=== PATIENT | female | born 1955 | race Hispanic/Latino ===

== ENCOUNTER → 2024-11-14 | Outpatient (CLI) | payer OTHER ==
--- NOTE | 2024-11-14 10:37 | HMCIMG ---
Esophagogram History: Diaphragmatic hernia without obstruction or gangrene Comparison: none Contrast: barium sulfate suspension, effervescent granules TECHNIQUE: EXAMINATION IS DONE UNDER FLUOROSCOPIC CONTROL, WITH FLUOROSCOPIC SPOTS OBTAINED. ALSO, OVERHEAD AP AND LATERAL VIEWS WERE OBTAINED. FINDINGS: Under fluoroscopic evaluation, the patient's esophagus demonstrates normal course, contour and caliber. Normal motility is seen. Mucosa is unremarkable. There is no evidence focal destructive lesion or stenosis or stricture. No neoplastic lesions identified or suspected. The pharyngeal structures including vallecula and piriform sinuses are unremarkable. Swallowing mechanism is normal without evidence of penetration or aspiration. IMPRESSION: Normal exam.
== END | disposition home or self-care (01) ==
LOC: RAH 09:45
PROVIDERS: ATTEND Surgery
DX: K44.9 Diaphragmatic hernia without obstruction or gangrene (principal)
CPT/HCPCS: 74220

== ENCOUNTER → 2024-12-16 | Outpatient (CLI) | payer MEDICARE ==
[~2024-12-16] VITALS: Ht 154.9 cm; Wt 65.0 kg
[~2024-12-16] MED LIST: AMLO-257 PO; CYCL-309 PO; DULO60CA64 PO; GABA300C PO; HYDR-3421 PO; LISI40TA9 PO; OMEP40CA21 PO
[2024-12-16 15:18] LABS: BASOPHILS # (AUTO) 0.06 K/uL (0.00-0.20); BASOPHILS % (AUTO) 0.6 % (0.0-5.0); EOSINOPHILS # (AUTO) 0.25 K/uL (0.00-0.70); EOSINOPHILS % (AUTO) 2.7 % (0.0-8.0); HEMATOCRIT 40.2 % (36-48); IMMATURE GRANULOCYTE ABSOLUTE 0.03 K/uL (0-1); LYMPHOCYTES # (AUTO) 2.8 K/uL (1.0-4.8); LYMPHOCYTES % (AUTO) 30.4 % (21.0-51.0); MEAN CORPUSCULAR HEMOGLOBIN 30.3 pg (27.0-33.0); MEAN CORPUSCULAR HGB CONC 33.1 g/dL (32.0-36.0); MEAN CORPUSCULAR VOLUME 91.6 fL (79-99); MONOCYTES # (AUTO) 0.6 K/uL (0.1-1.0); MONOCYTES % (AUTO) 6.1 % (3.0-13.0); NEUTROPHILS # (AUTO) 5.6 K/uL (1.8-7.7); NEUTROPHILS % (AUTO) 59.9 % (40.0-77.0); PLATELET COUNT (AUTO) 332 K/uL (130-400); RED BLOOD CELL COUNT(AUTO) 4.39 MIL/uL (4.00-5.50); WHITE BLOOD COUNT (AUTO) 9.3 K/uL (4.8-10.8)
[2024-12-16 15:25] VITALS: BP 97/66; PULSE 109; RESP 16; TEMP 97.7
[2024-12-16 15:31] LABS: CREATININE 0.8 mg/dL (0.5-1.0); POTASSIUM 3.4 mmol/L (3.5-5.1)
[2024-12-16 15:35] LABS: INR 1.02 (0.85-1.15); PROTHROMBIN TIME 10.8 SEC (9.6-11.6)
[2024-12-16 15:36] LABS: PARTIAL THROMBOPLASTIN TIME 31.3 SEC (26.3-35.5)
== END | disposition home or self-care (01) ==
LOC: DAH 13:28 → EDSTATUS 12-18 14:00
PROVIDERS: ATTEND Surgery
DX: Z01.818 Encounter for other preprocedural examination (principal); K21.00 Gastro-esophageal reflux disease with esophagitis, without bleeding; K44.9 Diaphragmatic hernia without obstruction or gangrene; I10 Essential (primary) hypertension; B96.81 Helicobacter pylori [H. pylori] as the cause of diseases classified elsewhere; Z79.899 Other long term (current) drug therapy; Z98.890 Other specified postprocedural states
CPT/HCPCS: 80048; 85025; 85610; 85730; 86850; 86900; 86901; 36415; A6260

== ENCOUNTER → 2025-02-10 | Outpatient (CLI) | payer MEDICARE, MEDICAID ==
[~2025-02-10] MED LIST changes: +LISI40TA15 PO; -LISI40TA9 PO
--- NOTE | 2025-02-10 10:21 | HMCIMG ---
UPPER GI SERIES History: Diaphragmatic hernia without obstruction or gangrene/Gastro-esophageal refl Comparison: none Contrast: barium sulfate suspension, effervescent granules TECHNIQUE: EXAMINATION IS DONE UNDER FLUOROSCOPIC CONTROL, WITH FLUOROSCOPIC SPOTS OBTAINED. ALSO, OVERHEAD AP, LATERAL AND OBLIQUE VIEWS WERE OBTAINED. Exposure factors: Total fluoro time: 0.6 minutes minutes FINDINGS: Under fluoroscopic evaluation, the patient's esophagus demonstrates normal course, contour and caliber. Normal motility is seen. There is a small hiatal hernia. No reflux is seen. The stomach, duodenal bulb, duodenal C-loop, and visualized proximal small bowel show no extrinsic compression, fixed filling defect, ulcerations or abnormalities in mucosal pattern. No tumor is identified. There is no gastric outlet obstruction. There is no extravasation. There is no evidence of malrotation. IMPRESSION: Small hiatal hernia. No reflux seen.
== END | disposition home or self-care (01) ==
LOC: RAH 08:35
PROVIDERS: ATTEND Surgery
DX: K44.9 Diaphragmatic hernia without obstruction or gangrene (principal); K21.00 Gastro-esophageal reflux disease with esophagitis, without bleeding
CPT/HCPCS: 74240

== ENCOUNTER 2025-03-26 09:11 | Emergency (ER) | payer MEDICARE, MEDICAID ==
[~2025-03-26] VITALS: Ht 154.9 cm; Wt 67.1 kg
[2025-03-26] MEDS: LACTATED RINGERS 1000ML 1,000 ML IV SCH (09:54)
[2025-03-26 10:03] LABS: APPEARANCE,URINE CLEAR (CLEAR); GLUCOSE, URINE (UA) NEGATIVE (NEGATIVE); LEUKOCYTE ESTERASE ,URINE NEGATIVE Leu/uL (NEGATIVE); NITRATE,URINE NEGATIVE (NEGATIVE); OCCULT BLOOD,URINE NEGATIVE (NEGATIVE)
[2025-03-26 10:07] LABS: ADD UA MICROSCOPIC NO
[2025-03-26 10:08] LABS: IMMATURE GRANULOCYTE ABSOLUTE 0.02 K/uL (0-1); NUCLEATED RED BLOOD CELLS 0.0 % (0.0-0.19); PLATELET COUNT (AUTO) 294 K/uL (130-400); RED BLOOD CELL COUNT(AUTO) 4.24 MIL/uL (4.00-5.50); RED CELL DISTRIBUTION WIDTH 14.5 % (11.0-15.5); WHITE BLOOD COUNT (AUTO) 7.0 K/uL (4.8-10.8)
--- NOTE | 2025-03-26 10:10 | ERN ---
General Chief Complaint: Back Pain-No Injury Stated Complaint: CHRONIC BACK PAIN, SCIATICA Time Seen by MD: 09:30 Source: patient History of Present Illness Initial Comments Mrs. Griffin is a 70-year-old female, presented to the emergency department with complaints of bilateral lower back pain. Patient says the pain started last night and got progressively severe. Patient describes the pain as sharp in the bilateral lower back and sharp pain radiating down both the legs up to toes more severe on the left. Patient does not report lifting anything heavy in the last few days. Patient says the pain worsens when she bends or stay still for a long time, relieved by walking. Patient reports taking Tylenol, ibuprofen, gabapentin however did not provide relief. Patient has a past medical history of slipped disc in her lumbar vertebrae. Patient says she had UTI which was treated with antibiotics 2 weeks ago. Today she does not report any symptoms of urinary dysuria frequency or urgency. Patient has past medical history of anxiety, hypertension, stomach hernias and GERD. Allergies: Coded Allergies: Sulfa (Sulfonamide Antibiotics) (Unverified Allergy, Unknown, 12/16/24) iodine (Unverified Allergy, Unknown, 12/16/24) Home Meds Reported Medications Gabapentin (Neurontin) 300 Mg Capsule, 300 MG PO TID, CAP 12/16/24 Amlodipine Besylate (Amlodipine Besylate) 5 Mg Tablet, 5 MG PO DAILY, TAB 12/16/24 Hydroxyzine HCl (Hydroxyzine HCl) 25 Mg Tablet, 25 MG PO TID PRN for ANXIETY, TAB 12/16/24 Lisinopril (Lisinopril) 40 Mg Tablet, 40 MG PO DAILY, TAB 12/16/24 Cyclobenzaprine HCl (Cyclobenzaprine HCl) 10 Mg Tablet, 10 MG PO HS, TAB 12/16/24 Omeprazole (Omeprazole) 40 Mg Capsule.dr, 40 MG PO DAILY, CAP 12/16/24 Duloxetine HCl (Duloxetine HCl) 60 Mg Capsule.dr, 60 MG PO DAILY, CAP 12/16/24 Past Medical History Past Medical History: Hypertension Medical History Other: CHRONIC BACK PAIN Past Surgical History: Hysterectomy ROS Dictation CONSTITUTIONAL: No chills, no fever, no weakness, no diaphoresis, no malaise. HEAD/FACE: No signs of trauma. EENT: No eye pain, no blurred vision, no tearing, no double vision, no ear pain, no ear discharge, no nose pain, no nasal congestion, no throat pain, no throat swelling, no mouth pain. RESPIRATORY: No cough, no SOB, no orthopnea, no PND, no wheezing. CARDIOVASCULAR: No chest pain, no edema, no palpitations, no syncope. GASTROINTESTINAL/ABDOMINAL: No abdominal pain, no constipation, no diarrhea, no nausea, no vomiting. GENITOURINARY: No abnormal discharge, no dysuria, no frequent urination, no hematuria. No complaints of pain in the genitals. MUSCULOSKELETAL: B/L back pain, no gout, b/l knee joint pain, no joint swelling, lower back muscle pain, Lower back muscle stiffness, neck pain. INTEGUMENTARY: No change in color, no change in hair/nails, no dryness, no lesion, no lumps, no rash. NEUROLOGICAL/PSYCH: No anxiety, not depressed, no emotional problem, no headache, no numbness, no pre-existing deficit, no history of seizures, no tremors, no weakness. HEMATOLOGIC/LYMPHATIC: Not anemic, no history of blood clots, no apparent bleeding, no bruising, glands not swollen. All Systems Negative, Except as Noted. Physical Exam Physical Exam Dictation VITAL SIGNS: Reviewed. GENERAL APPEARANCE: Alert, oriented x3 HEAD AND FACE: Non-traumatic. EYES: PERRL, pink conjunctivas, eyelid no trauma, anterior chamber clear. EARS: Pinnas intact and no signs of trauma or erythema. Ear canals clear and no discharge. TMs no erythema. NOSE: No discharge, no bleeding. OROPHARYNX: Mouth normal, teeth no caries, tongue pink. Pharynx clear, no erythema. Tonsils no exudates, no abscesses noted. Mucous membrane moist. NECK: Supple, non-tender, no thyromegaly, no masses, no JVD, no bruits. BREAST: Deferred. CHEST: No tenderness, no crepitus, no paradoxical movement, no retractions. LUNGS: Clear, well-ventilated, symmetric, no rales, no wheezing, no rhonchi, no stridor, good breath sounds bilaterally. HEART: Regular rate, regular rhythm, no murmur, no gallops. VASCULAR: No peripheral edema. ABDOMEN: Soft, positive bowel sounds, nondistended, no guarding, nontender, no rebound, no masses no hepatomegaly, no splenomegaly, no Gu's sign, no hernias. RECTAL: Deferred. GENITAL: Deferred. NEUROLOGICAL: Normal speech, gross motor function intact, gross sensory function intact. MUSCULOSKELETAL: Neck nontender, full range of motion, back stiffness, straight leg test positive, limited range of motion due to pain. EXTREMITIES: Nontender, full range of motion. SKIN: Color pink, dry, no turgor, no rash, no lacerations, no abrasions, no contusions. LYMPHATICS: Deferred. Results Laboratory and Microbiology Lab and Micro Result Laboratory Tests Test 03/26/25 09:49 03/26/25 10:04 Urine Color LIGHT-YELLOW (YELLOW) Urine Appearance CLEAR (CLEAR) Urine pH 6.0 (5.0-8.0) Urine Specific [place] 1.008 (1.001-1.031) Urine Protein NEGATIVE mg/dL (NEGATIVE) Urine Glucose (UA) NEGATIVE mg/dL (NEGATIVE) Urine Ketones NEGATIVE mg/dL (NEGATIVE) Urine Occult Blood NEGATIVE (NEGATIVE) Urine Nitrate NEGATIVE (NEGATIVE) Urine Bilirubin NEGATIVE mg/dL (NEGATIVE) Urine Urobilinogen 0.2 mg/dL (0.2-1.0) Urine Leukocyte Esterase NEGATIVE Bina/uL White Blood Count 7.0 K/uL (4.8-10.8) Red Blood Count 4.24 MIL/uL (4.00-5.50) Hemoglobin 13.0 g/dL (12.0-16.0) Hematocrit 38.1 % (36-48) Mean Corpuscular Volume 89.9 fL (79-99) Mean Corpuscular Hemoglobin 30.7 pg (27.0-33.0) Mean Corpuscular Hemoglobin Concent 34.1 g/dL (32.0-36.0) Red Cell Distribution Width 14.5 % (11.0-15.5) Platelet Count 294 K/uL (130-400) Mean Platelet Volume 9.2 fL (7.5-10.5) Immature Granulocyte % (Auto) 0.3 % (0-1) Neutrophils (%) (Auto) 59.0 % (40.0-77.0) Lymphocytes (%) (Auto) 32.3 % (21.0-51.0) Monocytes (%) (Auto) 5.7 % (3.0-13.0) Eosinophils (%) (Auto) 2.0 % (0.0-8.0) Basophils (%) (Auto) 0.7 % (0.0-5.0) Neutrophils # (Auto) 4.1 K/uL (1.8-7.7) Lymphocytes # (Auto) 2.3 K/uL (1.0-4.8) Monocytes # (Auto) 0.4 K/uL (0.1-1.0) Eosinophils # (Auto) 0.14 K/uL (0.00-0.70) Basophils # (Auto) 0.05 K/uL (0.00-0.20) Absolute Immature Granulocyte (auto 0.02 K/uL (0-1) Nucleated Red Blood Cells 0.0 % (0.0-0.19) Sodium Level 142 mmol/L (136-145) Potassium Level 3.8 mmol/L (3.5-5.1) Chloride Level 105 mmol/L (101-111) Carbon Dioxide Level 29 mmol/L (21-32) Blood Urea Nitrogen 13 mg/dL (7-18) Creatinine 0.7 mg/dL (0.5-1.0) Glomerular Filtration Rate Calc 94 mL/min (>90) Random Glucose 112 mg/dL (70-105) H Total Calcium 8.6 mg/dL (8.5-10.1) MDM MDM: Differential diagnosis: Lumbar fracture, Slipped disc, acute on chronic back pain, spinal muscle spasm.renal calculi. Rationale: Tests considered and ordered secondary to shared decision making include: Previous outside records reviewed: Old ER visits. Risk of complication and/or morbidity or mortality of patient management: None Medications-Per medication reconciliation Need for hospitalization: Patient does not meet criteria for hospitalization. Presented to the emergency department with complaints of bilateral lower back pain. Patient says the pain started last night and got progressively severe. Patient describes the pain as sharp in the bilateral lower back and sharp pain radiating down both the legs up to toes more severe on the left. Pt looked in acute distress on admission and was tachycardic. Subsequently patient was stable. Pt lumbar X-rays looked unremarkable and labs were normal too. Pt was given Toradol and Protonix in the ED says substantial improvement in her symptoms. Patient will be discharged home on naproxen and Robaxin. Patient was advised to follow up with PCP and also given a referral to the orthopedic surgeon, Dr. Elizabeth for penitentiary management of back pain. ED Course Orders Procedure Category Date Status Time 12 Lead Ekg Tracing- EKG 03/26/25 Complete Technical 09:44 Cbc With Differential LAB 03/26/25 Complete 09:44 Basic Metabolic Panel LAB 03/26/25 Complete 09:44 Urinalysis Profile LAB 03/26/25 Complete 09:44 Lactated Ringers PHA 03/26/25 In Process 1000ml (Lactated 10:00 Ketorolac PHA 03/26/25 Complete Tromethamine 30mg/Ml 10:00 Pantoprazole 40mg Inj PHA 03/26/25 Complete (Protonix 40mg Inj 10:00 Lumbar Spine 2-3vws RAD 03/26/25 Taken 10:32 Current Medications Medications (Trade) Dose Ordered Sig/Rio Route PRN Reason Start Time Stop Time Status Last Admin Dose Admin Ketorolac Tromethamine (toRADol) 30 mg ONCE ONCE IM 03/26/25 10:00 03/26/25 10:01 DC 03/26/25 09:55 Lactated Ringer's 1,000 ml @ 75 mls/hr [id number] IV 03/26/25 10:00 04/25/25 09:59 03/26/25 09:54 Pantoprazole Sodium (PROTonix 40MG INJ) 40 mg ONCE ONCE IVP 03/26/25 10:00 03/26/25 10:01 DC 03/26/25 09:54 Vital Signs Date Time Temp Pulse Resp B/P (MAP) Pulse Ox O2 Delivery O2 Flow Rate FiO2 03/26/25 10:47 83 14 147/70 95 Room Air* 0 21 03/26/25 09:12 97.9 114 18 113/67 96 Room Air* 0 21 03/26/25 09:12 97.9 114 18 113/67 96 Room Air 0 DX & DISP Disposition: Discharge Departure Impression: Primary Impression: Spasm of muscle of lower back Additional Impressions: Acute on chronic back pain, Mild scoliosis Condition: Stable Scripts Naproxen (Naproxen) 375 Mg Tablet 1 TAB PO BID for pain for 7 Days, #14 TAB 0 Refills with food Prov: RAFIA SAPP MD 03/26/25 Methocarbamol (Robaxin) 750 Mg Tab 1 TAB PO BID for 5 Days, #10 TAB 0 Refills Prov: RAFIA SAPP MD 03/26/25 Additional Instructions: FOLLOW-UP WITH PRIMARY CARE PROVIDER IN 1 TO 2 DAYS. TAKE MEDICATIONS DIRECTED HERE IN THE EMERGENCY ROOM. OKAY TO CONTINUE HOME MEDICATIONS UNLESS OTHERWISE DISCUSSED DURING YOUR VISIT IN THE EMERGENCY ROOM TODAY. RETURN TO YOUR NEAREST EMERGENCY ROOM IF SYMPTOMS WORSEN OR IF THERE IS NO IMPROVEMENT. CALL 911 IF YOU NEED IMMEDIATE ASSISTANCE. TAKE TYLENOL [id number] NEEDED AND IF NO CONTRAINDICATIONS ARE PRESENT. INCREASE ORAL HYDRATION. A WOUND CULTURE OR URINE CULTURE WAS ORDERED HERE IN THE EMERGENCY ROOM DEPARTMENT PLEASE FOLLOW-UP WITH PRIMARY CARE PROVIDER AND ADVISE THEM TO GET REPORTS FROM OUR FACILITY. IF YOU HAD ANY RYAN WRAP/SPLINTS THAT WERE APPLIED HERE, PLEASE DO NOT REMOVE THEM UNTIL YOU SEE YOUR PRIMARY CARE OR SPECIALTY. Referrals: Referrals: TULIO MCMANUS (PCP) ANTONI ELIZABETH MD, HARSHAVARDHA MD Mar 26, 2025 10:10
[2025-03-26 10:22] LABS: CREATININE 0.7 mg/dL (0.5-1.0); GLOMERULAR FILTR. RATE CALC 94.0 mL/min (>90); GLUCOSE,RANDOM 112.0 mg/dL (70-105); SODIUM SERUM 142.0 mmol/L (136-145); UREA NITROGEN, BLOOD 13.0 mg/dL (7-18)
--- NOTE | 2025-03-26 10:23 | EKG ---
[facility] Test Date: 2025-03-26 Test Time: 10:03:00 Pat Name: JOJO GRAHAM Department: ED Room: Gender: F Director Process: [id number] : [id number] Requested By: RAFIA SAPP Order Number: [id number] Reading MD: Mauri Cutler Measurements Intervals [place] Rate: 91 P: 63 IN: 145 QRS: 74 QRSD: 88 T: 51 QT: 364 QTc: 448 Interpretive Statements Sinus rhythm No previous ECG available for comparison Electronically Signed On 03-29-2025 23:54:14 CDT by Mauri Cutler Please click the below link to view image of tracing.
[2025-03-26] MEDS ORDERED: NAPR-1192 PO (11:46)
[2025-03-26] MEDS ORDERED: METH-662 PO (11:46)
[2025-03-26 12:01] VITALS: BP 109/74; PULSE 88; RESP 14; TEMP 98.5; O2SAT 97
--- NOTE | 2025-03-26 12:02 | NUR ---
PT AMBULATING WITH OUT ASSISTANCE,NAD, OUT THE DISCHARGE EXIT DOOR.
--- NOTE | 2025-03-26 12:25 | HMCIMG ---
EXAM: CR Lumbar Spine, 3 View. CLINICAL HISTORY: pain COMPARISON: None provided. FINDINGS: There is a gentle dextrocurvature of the lumbar spine and straightening of the lumbar spine that may reflect paraspinal muscle spasm. There is lumbar spondylosis evident by anterior osteophytes and syndesmophytes at multiple levels. There is moderate to severe multilevel degenerative disc disease, more pronounced at L4-L5 and L5-S1. Vertebral body heights are maintained. There is no displaced fracture appreciated. There is mild grade 1 anterolisthesis of L5 with respect to S1 related to facet joint osteoarthritis. IMPRESSION: 1. No acute osseous injury. 2. Moderate to severe multilevel degenerative disc disease, most pronounced at L4-L5 and L5-S1, with mild L5-S1 grade 1 anterolisthesis. /[place]
== END 2025-03-26 11:57 | disposition home or self-care (01) ==
LOC: EDH 09:11
DX: M62.830 Muscle spasm of back (principal); G89.29 Other chronic pain; M54.9 Dorsalgia, unspecified; M41.9 Scoliosis, unspecified; I10 Essential (primary) hypertension; Z79.899 Other long term (current) drug therapy; Z88.2 Allergy status to sulfonamides; Z88.8 Allergy status to other drugs, medicaments and biological substances; Z90.710 Acquired absence of both cervix and uterus
CPT/HCPCS: 99285; 96374; 96361; 80048; 85025; 81003; 36415; 72100; 96372; 93005; J1885; J7120; J2470

== ENCOUNTER 2025-07-17 13:40 | Emergency (ER) | payer MEDICARE, MEDICAID ==
[~2025-07-17] VITALS: Ht 154.9 cm; Wt 68.0 kg
[~2025-07-17 13:40] MED LIST changes: +METH-662 PO; +NAPR-1192 PO
--- NOTE | 2025-07-17 14:01 | ERN ---
ED Note History of Present Illness Stated Complaint: RT FLANK PAIN Chief Complaint: Flank Pain Time Seen by MD: 13:51 Time Seen by Midlevel: 13:52 Dictation: 70-year-old female presents to the emergency department due to reported having diffuse abdominal pain that began 6 weeks to. Initially, she rated her pain level as a 4/10. At this time, she rates her level as a 9/10. The patient states that the pain is diffuse. She reports the pain as being an achy/crampy type of sensation. There is report of nausea but no confirmed vomiting. Patient states that her life bowel movement was yesterday. She states that she did have a hernia repair 2 months ago. Upon initial evaluation, the patient presents mildly uncomfortable looking. Allergies: Coded Allergies: Sulfa (Sulfonamide Antibiotics) (Unverified Allergy, Unknown, 12/16/24) iodine (Unverified Allergy, Unknown, 12/16/24) Emergency Care NON DESTRUCTIVE TESTING SPECIALIST: IV Home Meds Active Scripts Naproxen (Naproxen) 375 Mg Tablet, 1 TAB PO BID for pain for 7 Days, #14 TAB 0 Refills with food Prov:RAFIA SAPP MD 03/26/25 Methocarbamol (Robaxin) 750 Mg Tab, 1 TAB PO BID for 5 Days, #10 TAB 0 Refills Prov:RAFIA SAPP MD 03/26/25 Reported Medications Gabapentin (Neurontin) 300 Mg Capsule, 300 MG PO TID, CAP 12/16/24 Amlodipine Besylate (Amlodipine Besylate) 5 Mg Tablet, 5 MG PO DAILY, TAB 12/16/24 Hydroxyzine HCl (Hydroxyzine HCl) 25 Mg Tablet, 25 MG PO TID PRN for ANXIETY, TAB 12/16/24 Lisinopril (Lisinopril) 40 Mg Tablet, 40 MG PO DAILY, TAB 12/16/24 Cyclobenzaprine HCl (Cyclobenzaprine HCl) 10 Mg Tablet, 10 MG PO HS, TAB 12/16/24 Omeprazole (Omeprazole) 40 Mg Capsule.dr, 40 MG PO DAILY, CAP 12/16/24 Duloxetine HCl (Duloxetine HCl) 60 Mg Capsule.dr, 60 MG PO DAILY, CAP 12/16/24 Past Medical History Past Medical History: Hypertension Additional Past Medical Hx: CHRONIC BACK PAIN Surgical History: Hysterectomy PSYCH History: no pertinent psych hx History: Not Applicable RN Note Reviewed/Agreed w/PFSH: Yes Review of System Dictation Abdomen/GI: Abdominal pain, nausea Initial Vital Sign VS Vital Signs Date Time Temp Pulse Resp B/P (MAP) Pulse Ox O2 Delivery O2 Flow Rate FiO2 07/17/25 13:42 98.6 115 20 132/88 99 Room Air 07/17/25 14:05 0 21 Physical Exam Dictation General: awake, alert, NAD Head/Face: Normocephalic, atraumatic Eyes: PERRL, EOMI ENT: Oral mucosa moist Neck: Trachea midline, supple Cardiovascular: RRR, no edema Respiratory: Symmetrical, non-labored Abdomen: Soft, diffuse tenderness, non-distended, no guarding. Skin: Warm, dry, good turgor, no rash MS/Extremity: Pulses equal, no cyanosis, neurovascular intact, FROM Neuro: COAx4, GCS 15, steady gait, Psych: Normal behavior, mood, and affect normal Results (Laboratory/Radiology) Laboratory/Radiology Laboratory Tests Test 07/17/25 14:17 07/17/25 17:30 White Blood Count 11.5 K/uL (4.8-10.8) H Red Blood Count 4.35 MIL/uL (4.00-5.50) Hemoglobin 13.4 g/dL (12.0-16.0) Hematocrit 39.0 % (36-48) Mean Corpuscular Volume 89.7 fL (79-99) Mean Corpuscular Hemoglobin 30.8 pg (27.0-33.0) Mean Corpuscular Hemoglobin Concent 34.4 g/dL (32.0-36.0) Red Cell Distribution Width 13.7 % (11.0-15.5) Platelet Count 298 K/uL (130-400) Mean Platelet Volume 9.5 fL (7.5-10.5) Immature Granulocyte % (Auto) 0.3 % (0-1) Neutrophils (%) (Auto) 69.2 % (40.0-77.0) Lymphocytes (%) (Auto) 23.6 % (21.0-51.0) Monocytes (%) (Auto) 4.8 % (3.0-13.0) Eosinophils (%) (Auto) 1.7 % (0.0-8.0) Basophils (%) (Auto) 0.4 % (0.0-5.0) Neutrophils # (Auto) 7.9 K/uL (1.8-7.7) H Lymphocytes # (Auto) 2.7 K/uL (1.0-4.8) Monocytes # (Auto) 0.6 K/uL (0.1-1.0) Eosinophils # (Auto) 0.20 K/uL (0.00-0.70) Basophils # (Auto) 0.05 K/uL (0.00-0.20) Absolute Immature Granulocyte (auto 0.03 K/uL (0-1) Nucleated Red Blood Cells 0.0 % (0.0-0.19) Sodium Level 139 mmol/L (136-145) Potassium Level 3.4 mmol/L (3.5-5.1) L Chloride Level 101 mmol/L (101-111) Carbon Dioxide Level 28 mmol/L (21-32) Blood Urea Nitrogen 10 mg/dL (7-18) Creatinine 0.6 mg/dL (0.5-1.0) Glomerular Filtration Rate Calc 97 mL/min (>90) Random Glucose 103 mg/dL (70-105) Total Calcium 8.8 mg/dL (8.5-10.1) Total Bilirubin 0.2 mg/dL (0.2-1.0) Aspartate Amino Transf (AST/SGOT) 18 U/L (10-37) Alanine Aminotransferase (ALT/SGPT) 21 U/L (12-78) Alkaline Phosphatase 112 U/L (50-136) Troponin I High Sensitivity 5 ng/L (4-50) Total Protein 7.3 g/dL (6.0-8.3) Albumin 3.5 g/dL (3.5-5.0) Urine Color LIGHT-YELLOW (YELLOW) Urine Appearance CLEAR (CLEAR) Urine pH 6.5 (5.0-8.0) Urine Specific [place] 1.008 (1.001-1.031) Urine Protein NEGATIVE mg/dL (NEGATIVE) Urine Glucose (UA) NEGATIVE mg/dL (NEGATIVE) Urine Ketones NEGATIVE mg/dL (NEGATIVE) Urine Occult Blood +- (TRACE) (NEGATIVE) H Urine Nitrate NEGATIVE (NEGATIVE) Urine Bilirubin NEGATIVE mg/dL (NEGATIVE) Urine Urobilinogen 0.2 mg/dL (0.2-1.0) Urine Leukocyte Esterase NEGATIVE Bina/uL Urine RBC 2-5 /HPF (0-1) H Urine WBC 0-1 /HPF (0-1) Urine Squamous Epithelial Cells RARE /HPF (0-2) Urine Bacteria None /HPF (None Seen) Labs Reviewed?: Yes CT Scan Comment: CT abdomen/pelvis without contrast with no pertinent findings as per radiologist's. ED Course ED Course Orders Procedure Category Date Status Time Troponin I High LAB 07/17/25 Complete Sensitivity 14:07 Cbc With Differential LAB 07/17/25 Complete 14:07 Comprehensive LAB 07/17/25 Complete Metabolic Panel 14:07 Urinalysis Profile LAB 07/17/25 Complete 14:07 Ketorolac PHA 07/17/25 Complete Tromethamine 30mg/Ml 14:30 0.9%Nacl 1000ml (Ns PHA 07/17/25 Complete 1000ml) 14:30 Famotidine 20mg Vial PHA 07/17/25 Complete (Pepcid 20mg Vial) 14:30 Ct Abdomen/Pelvis W/O CT 07/17/25 Resulted Contrast 14:38 Current Medications Medications (Trade) Dose Ordered Sig/Rio Route PRN Reason Start Time Stop Time Status Last Admin Dose Admin Famotidine (Pepcid 20mg Vial) 20 mg ONCE IV 07/17/25 14:30 07/17/25 18:29 DC 07/17/25 14:25 Ketorolac Tromethamine (toRADol) 30 mg ONCE IVP 07/17/25 14:30 07/17/25 18:29 DC 07/17/25 14:20 Sodium Chloride 1,000 ml @ 0 mls/hr ONCE IV 07/17/25 14:30 07/17/25 18:29 DC 07/17/25 14:20 Vital Signs Date Time Temp Pulse Resp B/P (MAP) Pulse Ox O2 Delivery O2 Flow Rate FiO2 07/17/25 18:11 98.1 87 13 134/75 97 Room Air* 0 21 07/17/25 14:05 98.2 104 28 119/79 98 Room Air* 0 21 07/17/25 13:42 98.6 115 20 132/88 99 Room Air Medical Decision Making MDM MDM: Differential diagnosis: Acute abdominal pain, small-bowel obstruction, acute diverticulitis. Rationale: Tests considered and ordered secondary to shared decision making include: Previous outside records reviewed: Old ER visits. Risk of complication and/or morbidity or mortality of patient management: None Medications-Per medication reconciliation Need for hospitalization: Patient does not meet criteria for hospitalization. Need for emergency major/minor surgery: No There are no social concerns with this patient. Prescription drug management Prescriptions will include symptomatic care Patient's prior external medical records from other ER visits were reviewed by me as indicated. Prior testing and results from previous visits were reviewed. Prior tests were taken into account with medical decision making and resource utilization, independent historian/historians were used to obtain complete medical history. I independently interpreted the test that were performed, results were reviewed by me and considered findings on radiology if ordered. Medical management and examination interpretation discussions were had by me with other qualified healthcare professionals as indicated for the patient's care. DX & DISP Disposition: Discharge Departure Impression: Primary Impression: Acute abdominal pain Condition: Stable Referrals: TULIO MCMANUS (PCP) Time of Disposition: 17:54 ATTESTATION BY PHYSICIAN I PERFORMED THE SUBSTANTIVE PORTION OF THE VISIT. I HAVE REVIEWED AND PERSONALLY MADE AND APPROVED THE MANAGEMENT PLAN THAT IS DOCUMENTED IN THE NOTE BY MYSELF FOR THE A PP. VALENTIN GIBBS Jul 17, 2025 14:01 GRAY ARIAS MD Jul 20, 2025 07:48
[2025-07-17] MEDS: 0.9%NACL 1000ML 1,000 ML IV SCH (14:20)
[2025-07-17 14:25] LABS: IMMATURE GRANULOCYTE ABSOLUTE 0.03 K/uL (0-1); NUCLEATED RED BLOOD CELLS 0.0 % (0.0-0.19); PLATELET COUNT (AUTO) 298 K/uL (130-400); RED BLOOD CELL COUNT(AUTO) 4.35 MIL/uL (4.00-5.50); RED CELL DISTRIBUTION WIDTH 13.7 % (11.0-15.5); WHITE BLOOD COUNT (AUTO) 11.5 K/uL (4.8-10.8)
[2025-07-17] MEDS: FAMOTIDINE 20MG VIAL IV SCH (14:25)
[2025-07-17 14:36] LABS: CREATININE 0.6 mg/dL (0.5-1.0); GLOMERULAR FILTR. RATE CALC 97.0 mL/min (>90); GLUCOSE,RANDOM 103.0 mg/dL (70-105); SODIUM SERUM 139.0 mmol/L (136-145); UREA NITROGEN, BLOOD 10.0 mg/dL (7-18)
[2025-07-17 14:41] LABS: ASPARTATE AMINOTRANSFERASE 18.0 U/L (10-37); TOTAL PROTEIN, SERUM 7.3 g/dL (6.0-8.3)
--- NOTE | 2025-07-17 16:58 | HMCIMG ---
EXAM: CT Abdomen and Pelvis without IV contrast CLINICAL HISTORY: pain TECHNIQUE: Axial computed tomography images of the abdomen and pelvis without intravenous contrast. CT scan performed according to ALARA. Automated exposure control used during exam. CONTRAST: without intravenous contrast. COMPARISON: None provided. FINDINGS: No acute evidence of limited views lung bases. Suspected chronic interstitial lung disease. Limited evaluation of the abdominal organs without intravenous contrast. There is no focal abnormality appreciated within the liver, gallbladder, either adrenal gland, either kidney, spleen, or pancreas. Small hiatal hernia. Bowel loops are normal in caliber without evidence of obstruction, ileus, or obvious bowel wall thickening. There is occasional colonic diverticuli without evidence for diverticulitis. The appendix was not adequately visualized for characterization, however no inflammatory changes are seen to suggest acute appendicitis. There is no abnormality within the unopacified bladder. The uterus is surgically absent. There is no ascites or lymphadenopathy. Atherosclerotic vascular calcifications are noted. There is no acute or suspicious osseous abnormality. IMPRESSION: 1. No acute intraabdominal or pelvic pathology. /[place]
[2025-07-17 17:36] LABS: APPEARANCE,URINE CLEAR (CLEAR); GLUCOSE, URINE (UA) NEGATIVE (NEGATIVE); LEUKOCYTE ESTERASE ,URINE NEGATIVE Leu/uL (NEGATIVE); NITRATE,URINE NEGATIVE (NEGATIVE); OCCULT BLOOD,URINE +- (TRACE) (NEGATIVE)
[2025-07-17 17:38] LABS: ADD UA MICROSCOPIC YES
[2025-07-17 17:40] LABS: SQUAMOUS EPITHELIAL CELL,UR RARE /HPF (0-2)
[2025-07-17 18:11] VITALS: BP 134/75; PULSE 87; RESP 13; TEMP 98.1; O2SAT 97
--- NOTE | 2025-07-17 18:23 | NUR ---
dc patient was dc'd by dr tam, i dc'd patients iv with cath still intact and applied 2x2 gauze with coban i explained to patient to follow up with pcp, provided info based on diagnosis, and answered any follow up questions patient AMBULATED out of ed no complications
== END 2025-07-17 18:23 | disposition home or self-care (01) ==
LOC: EDH 13:40
DX: R10.84 Generalized abdominal pain (principal); R11.0 Nausea; I10 Essential (primary) hypertension; G89.29 Other chronic pain; Z88.2 Allergy status to sulfonamides; Z88.8 Allergy status to other drugs, medicaments and biological substances; Z79.899 Other long term (current) drug therapy; Z90.710 Acquired absence of both cervix and uterus; Z98.890 Other specified postprocedural states
CPT/HCPCS: 99285; 74176; 96374; 96361; 96375; 84484; 80053; 85025; 81001; 36415; J1885; J1308